=== PATIENT | male | born 1955 | race Caucasian/White ===

== ENCOUNTER → 2017-03-17 | Outpatient (CLI) | payer OTHER ==
[~2017-03-17] MED LIST: ASPI81TA19 PO; HYDR25TA5 PO; LISI-515 PO; MULT1TAB50 PO
[2017-03-17 07:51] LABS: AUTOMATED NEUTROPHIL # 3.1 TH/MM3 (1.8-7.7); BASOPHIL % 0.7 % (0.0-2.0); EOSINOPHIL # 0.1 TH/MM3 (0-0.4); EOSINOPHIL % 2.3 % (0.0-4.0); HEMATOCRIT 43.2 % (39.0-51.0); HEMO FLAGS DIFF FINAL; LYMPH % 18.4 % (9.0-44.0); LYMPHOCYTE # 0.9 TH/MM3 (1.0-4.8); MEAN CELL VOLUME 90.3 FL (80.0-100.0); MEAN CORPUSCULAR HEMOGLOBIN 31.2 PG (27.0-34.0); MEAN CORPUSCULAR HGB CONC 34.6 % (32.0-36.0); MONO % 11.4 % (0.0-8.0); NEUT % 67.2 % (16.0-70.0); PLATELET COUNT 223 TH/MM3 (150-450); RED BLOOD COUNT 4.79 MIL/MM3 (4.50-5.90); WHITE BLOOD COUNT 4.7 TH/MM3 (4.0-11.0)
[2017-03-17 08:20] LABS: ALKALINE PHOSPHATASE 72 U/L (45-117); HDL CHOLESTEROL 30.3 MG/DL (40.0-60.0); TOTAL BILIRUBIN ADULT 0.4 MG/DL (0.2-1.0)
[2017-03-17 08:23] LABS: ALT (GPT) 112 U/L (12-78); ANION GAP 3 MEQ/L (5-15); AST (GOT) 63 U/L (15-37); BICARBONATE 33.8 MEQ/L (21.0-32.0); BLOOD UREA NITROGEN 17 MG/DL (7-18); CHLORIDE 104 MEQ/L (98-107); GLOMERULAR FILTRATION RATE 70 ML/MIN (>89); GLUCOSE,FASTING 118 MG/DL (74-99); LDL CHOLESTEROL 52 MG/DL (0-99); POTASSIUM 4.2 MEQ/L (3.5-5.1); SODIUM (NA) 141 MEQ/L (136-145)
== END ==
LOC: CLAB 07:26
PROVIDERS: ATTEND Physician Assistant Medical
DX: I10 Essential (primary) hypertension (principal); Z72.0 Tobacco use
CPT/HCPCS: 36415; 80053; 80061; 84443; 85025

== ENCOUNTER → 2017-03-21 | Outpatient (CLI) | payer OTHER ==
[2017-03-21 10:07] LABS: TRANSFERRIN IRON PROFILE 271 MG/DL (200-360)
== END ==
LOC: CLAB 09:15
PROVIDERS: ATTEND Nurse Practitioner Family
DX: R74.8 Abnormal levels of other serum enzymes (principal)
CPT/HCPCS: 36415; 80074; 83540; 83550

== ENCOUNTER → 2017-04-04 | Outpatient (CLI) | payer OTHER ==
[2017-04-04 17:15] LABS: HEMOGLOBIN A1a 1.2 %; HEMOGLOBIN A1b 1.8 %; HEMOGLOBIN Ao 83.5 %; HEMOGLOBIN LA1C 2.4 %; HEMOGLOBIN P3 4.4 %
== END ==
LOC: CLAB 08:53
PROVIDERS: ATTEND Nurse Practitioner Family
DX: R73.01 Impaired fasting glucose (principal)
CPT/HCPCS: 36415; 83036

== ENCOUNTER → 2017-04-11 | Outpatient (CLI) | payer OTHER ==
--- NOTE | 2017-04-11 09:45 | RADRPT ---
EXAM DATE/TIME: 04/11/2017 08:22 [place] COMPARISON: No previous studies available for comparison. INDICATIONS : Hepatitis C. MEDICAL HISTORY : Hepatitis C. Hypertension. SURGICAL HISTORY : Appendectomy. Bowerl surgery. Hernia repair. ENCOUNTER: Initial ACUITY: 1 week PAIN SCORE: 0/10 LOCATION: Bilateral upper quadrant MEASUREMENTS: LIVER: 14.4 cm length COMMON DUCT: 5 mm RIGHT KIDNEY: 10.3 x 5.1 x 4.6 cm SPLEEN: 9.1 cm length FINDINGS: LIVER: Normal echotexture without focal lesion or ductal dilatation. There is hepatopedal flow in the portal vein. COMMON DUCT: No intraluminal mass or stone visualized. GALLBLADDER: Contains no stones, demonstrates no wall thickening or pericholecystic fluid. PANCREAS: The visualized portions are within normal limits. RIGHT KIDNEY: No hydronephrosis, stone or mass. SPLEEN: No focal lesion. CONCLUSION: 1. Unremarkable right upper quadrant ultrasound examination. Specifically, no evidence for significan t hepatic volume loss, portal hypertension, or gross hepatic mass. Anil Vazquez MD on April 11, 2017 at 9:41 Board Certified Radiologist. This report was verified electronically.
== END ==
LOC: HRAD 08:24
PROVIDERS: ATTEND Family Medicine
DX: B19.20 Unspecified viral hepatitis C without hepatic coma (principal)
CPT/HCPCS: 76705

== ENCOUNTER 2017-08-15 08:09 | Emergency (ER) | payer OTHER ==
[~2017-08-15] VITALS: Ht 167.6 cm; Wt 78.0 kg
[2017-08-15 08:11] VITALS: BP 172/92; PULSE 72; RESP 13; TEMP 98.2; O2SAT 99
--- NOTE | 2017-08-15 08:37 | PD ---
HPI Chief Complaint: Bite or Sting Time Seen by Provider: 08:28 Travel History International Travel<30 days: No Contact w/Intl Traveler<30days: No Traveled to known affect area: No History of Present Illness HPI 61-year-old male is emergency Department with presumed spider bite to the anterior middle left chest. Patient has localized erythema, mild tenderness , and drainage. Patient states he's been trying to drain on his own. He has no history of MRSA in the past. He denies fever or significant pain. He is unsure of his last tetanus shot. He has no known drug allergies. [facility] Past Medical History Hypertension: Yes Social History Alcohol Use: Yes (2 TIMES A MONTH) Tobacco Use: Yes (1PPD) Substance Use: No Allergies-Medications (Allergen,Severity, Reaction): Coded Allergies: No Known Allergies (Verified Adverse Reaction, Unknown, 08/15/17) Reported Meds & Prescriptions Reported Meds & Active Scripts Active Lisinopril 20 Mg Tab 20 Mg PO BID Hydrochlorothiazide 25 Mg Tab 25 Mg PO DAILY Reported Centrum Men's Tablet (Multivit-Mins/Iron/Folic/Lycop) 1 Each Tablet 1 Tab PO DAILY Aspir-Low (Aspirin) 81 Mg Tabdr 1 Tab PO DAILY Review of Systems Except as stated in HPI: all other systems reviewed are Neg General / Constitutional: No: Fever Eyes: No: Visual changes HENT: No: Headaches Cardiovascular: No: Chest Pain or Discomfort Respiratory: No: Shortness of Breath Gastrointestinal: No: Abdominal Pain Genitourinary: No: Dysuria Musculoskeletal: No: Pain Skin: Positive Lesions (see history of present illness.), No Rash Neurologic: No: Weakness Psychiatric: No: Depression Endocrine: No: Polydipsia Hematologic/Lymphatic: No: Easy Bruising Physical Exam Narrative GENERAL: Patient is in no acute distress. SKIN: Warm and dry. Normal color. Normal turgor. Patient has 2 open areas with signs of excoriation to the left middle anterior chest with localized induration, erythema, warmth. No obvious abscess is noted. HEAD: Atraumatic. Normocephalic. EYES: Pupils equal and round. No scleral icterus. No injection or drainage. ENT: No nasal bleeding or discharge. Mucous membranes pink and moist. Pharynx is clear. Airway is patent. NECK: Trachea midline. Supple and nontender. CARDIOVASCULAR: Regular rate and rhythm. RESPIRATORY: No accessory muscle use. Clear to auscultation. Breath sounds equal bilaterally. MUSCULOSKELETAL: Extremities without clubbing, cyanosis, or edema. No obvious deformities. NEUROLOGICAL: Awake and alert. No obvious cranial nerve deficits. Motor grossly within normal limits. Five out of 5 muscle strength in the arms and legs. Normal speech. PSYCHIATRIC: Appropriate mood and affect; insight and judgment normal. Data Data Last Documented VS Vital Signs Date Time Temp Pulse Resp B/P (MAP) Pulse Ox O2 Delivery O2 Flow Rate FiO2 08/15/17 08:11 98.2 72 13 172/92 (118) 99 MDM Medical Decision Making Medical Screen Exam Complete: Yes Emergency Medical Condition: Yes Differential Diagnosis Insect bite. Cellulitis. Abscess. Need for tetanus. MRSA. Narrative Course Patient is given tetanus 0.5 mg IM. Patient is treated with Bactrim DS twice a day 7 days. Patient also given Bactroban ointment to be applied twice daily, 22 g. Patient is to use warm compresses to the area and follow-up as needed Diagnosis Primary Impression: Insect bite of chest, infected Qualified Codes: S20.362A - Insect bite (nonvenomous) of left front wall of thorax, initial encounter Referrals: Primary Care Physician Patient Instructions: Cellulitis (ED), General Instructions, Insect Bite or Sting (ED), Tetanus (DC) Additional Instructions: Patient is given tetanus 0.5 mg IM. Patient is treated with Bactrim DS twice a day 7 days. Patient also given Bactroban ointment to be applied twice daily, 22 g. Patient is to use warm compresses to the area and follow-up as needed Med/Other Pt SpecificInfo: Prescription(s) given Disposition: 01 DISCHARGE HOME Condition: Stable Daquan Wade Aug 15, 2017 08:37
[2017-08-15] MEDS ORDERED: MUPI2%T TOPICAL (08:38)
[2017-08-15] MEDS ORDERED: BACT800T5 PO (08:38)
[2017-08-15] MEDS ORDERED: TETANUS/DIPHTHERIA TOXOID ADULT 0.5 ML VIAL IM ONE (08:45)
== END 2017-08-15 09:07 | disposition home or self-care (01) ==
LOC: NEPK 08:09
DX: S20.362A Insect bite (nonvenomous) of left front wall of thorax, initial encounter (principal); F17.200 Nicotine dependence, unspecified, uncomplicated; W57.XXXA Bitten or stung by nonvenomous insect and other nonvenomous arthropods, initial encounter; Z23 Encounter for immunization; Z79.82 Long term (current) use of aspirin; Z79.899 Other long term (current) drug therapy
CPT/HCPCS: 90471; 90714